=== PATIENT | female | born 1995 | race Caucasian/White ===

== ENCOUNTER 2023-03-05 08:11 | Inpatient (IN) | payer OTHER, MEDICAID, SELFPAY ==
[2023-03-05] VITALS (17 sets, daily range): BP systolic 89–116; BP diastolic 54–83; PULSE 75–107; RESP 14–18; TEMP 35.8–36.9; O2SAT 95–100; BMI 35.5
[2023-03-05 08:58] LABS: Absolute Lymphocyte Count 2.03 X10^3/uL (0.83-4.51); Absolute Neutrophil Count 5.5 X10^3/uL (2.0-7.7); Basophil# 0.03 X10^3/uL; Basophil% 0.4 % (0-1); Eosinophils% 1.2 % (0-5); Hematocrit 31.5 % (37-47); Hemoglobin 9.8 g/dL (12.0-15.0); Lymphocyte # 2.03 X10^3/ul (0.83-4.51); Lymphocyte % 24.4 % (19-41); Mean Corp Hgb Conc 31.1 g/dL (32-36); Mean Corpuscular Hgb 27.8 pg (27.0-32.0); Mean Corpuscular Volume 89.2 fL (81-99); Mean Platelet Vol. 10.7 fl (6.2-12.0); Monocyte# 0.53 X10^3/uL; Monocyte% 6.4 % (0-10); NRBC Flagged by Analyzer 0 % (0-5); Platelet Count 244 K/mm3 (150-450); RBC Distribution Width CV 14.3 % (11.6-14.6); RBC Distribution Width SD 45.8 fl (35.1-43.9); Red Blood Count 3.53 M/mm3 (4.2-5.4); White Blood Count 8.3 K/mm3 (4.4-11.0)
[2023-03-05] MEDS: Lactated Ringers 1,000 ML 999 ML IV (09:36)
[2023-03-05] MEDS: Acetaminophen 500 MG Tablet 1000 MG PO ×3 (09:46→22:43)
[2023-03-05] MEDS: Lactated Ringers 1,000 ML 150 ML IV (09:46)
[2023-03-05 09:54] LABS: Syphilis Antibodies Non-reactive
[2023-03-05] MEDS: Sodium Citrate/Citric Acid 30 ML UDC PO (10:59)
[2023-03-05] MEDS: Cefazolin 2 GM in 0.9% Normal Saline 100 ML IV (11:05)
--- NOTE | 2023-03-05 11:55 | PLAC_PTH ---
PATIENT: PARKER BERGMAN LOC: [facility] U#:[id number] AGE/SX: 27/F ROOM: WP004 RE03/05/[address]: Dr. Candelaria Stock MD : 1995 BED: 1 DIS: 03/09/2023 SPEC #: [id number] RECD: 03/05/23 12:55 STATUS: ALEXANDER REAustin #: [id number] MARZENA: 03/05/23 11:[address]: Candelaria Stock DEPT: SURGICAL PATHOLOGY RECD BY: Mitra Combs ENTERED: 03/06/23 09:31 SP TYPE: PLACENTA OTHR DR: No Primary Care Phys Tissues: A - Placenta, NOS B - Fallopian tube Procedures: Surgery Specimen Level II Surgery Specimen Level V HEADER OPERATION: Primary section, tubal ligation PRE-OP DIAGNOSIS: IUGR / twins TISSUE SUBMITTED: A ? Placenta, B ? Fallopian tubes, suture in right tube MICROSCOPIC DIAGNOSIS A. Dichorionic diamniotic twin placenta (713 gm): Placenta A: Umbilical cord ? trivascular with no inflammation. Placental membranes - No pathologic change. Placental disc ? Jemima-Zackary change, increased intraparenchymal fibrin plaques and intervillous congestion. Placenta B: Umbilical cord ? trivascular with no evidence of inflammation. Placental membranes - No pathologic change. Placental disc ? Multi-infarcts, Jemima-Zackary change and intervillous congestion. B. Right fallopian tube, salpingectomy: No pathologic change. Left fallopian tube, salpingectomy: No pathologic change. AM:anastasia 03/09/2023 COMMENT Case has been reviewed in consultation with Dr. Nathan who concurs with the above diagnosis. IDC:SJ MICROSCOPIC DESCRIPTION Slides are reviewed. GROSS DESCRIPTION A - SPECIMEN: TWIN PLACENTA / CLINICAL INFORMATION: A. Weight: A ? 1.99 kg; B ? 2.165 kg B. Gestational Age: 37 weeks C. Sex: A ? Male, B - Female The specimen consists of twin placenta consisting of a single placental disc, two umbilical cord and two sets of membranes and dividing membranous septum inserted close to the umbilical cord without clamp. One umbilical cord shows a clamp which is assigned placenta A. PLACENTAL WEIGHT (POST FIXATION): 713 gm PLACENTAL DIMENSIONS: 28.0 x 17.0 x 4.0 cm. The body of the placenta towards placenta A measures up to 22.0 x 12.0 x 4.0 cm and towards placenta B measures 18.0 x 11.0 x 4.5 cm PLACENTAL SHAPE: Usual ovoid PLACENTA A: MEMBRANES - Present A. Insertion: Marginal B. Site of rupture from edge: Appears to be ruptured at the margin of the placenta. C. Color of membrane: Bauer-glaser D. Abnormalities: None UMBILICAL CORD - Present A. Color: Bauer-glaser B. Insertion: Central C. Length: 37.0 cm D. Diameter: 1.0 cm E. Number of vessels: Three F. Abnormalities: A true knot is present. It appears to be sightly tight. After untying the knot, it measures 41.0 cm in length and measures 1.0 cm diameter. Slightly increased spiraling is noted. PLACENTA B: MEMBRANES - Present A. Insertion: Marginal B. Site of rupture from edge: at edge of placental disc C. Color of membrane: Bauer-glaser D. Abnormalities: None UMBILICAL CORD - Present A. Color: Bauer-glaser B. Insertion: Marginal C. Length: 44.0 cm D. Diameter: 1.0 cm E. Number of vessels: Three F. Abnormalities: Increased spiraling is noted. PLACENTAL DISC - Present A. Color of surface: Bauer-glaser B. surface abnormalities: None C. Maternal cotyledons: Intact with minimal tears D. Attached retro placental clot: No clot E. Cut surface: Dark red and spongy F. Lesions: Sections of the placental B site reveal two peripheral lesions measuring 1.0 and 1.5 cm in greatest dimension. A bauer, indurated area is also noted on the maternal surface measuring 0.5 cm in greatest dimension. G. Separate clot: Absent SECTIONS SUBMITTED: 12 cassettes 1 - Dividing membranous septum, 2-6 - placenta A (2 - membrane roll, 3 - umbilical cord, maternal end inked black, 4-6 - body of the placenta), 7-12 - placenta B (7 - membrane roll, 8 - umbilical cord, maternal end and lesion on placental surface, 9 ? umbilical cord end and peripheral lesion, 10-12 - body of the placenta including maternal surface, peripheral lesion). B - Received in fixative is one container labeled with the patient's name and designated bilateral fallopian tubes, right stitch. The specimen consists of bilateral fallopian tubes including fimbrial ends. The right fallopian tube measures 7.0 cm in length and up to 1.0 cm in diameter and left fallopian tube measures 5.5 cm in length and 0.6 cm in diameter. Sections reveal unremarkable cut surfaces. Uniformer sections are submitted in two cassettes with each cassette containing one fallopian tube. / SJ:anastasia 03/06/2023 TC:5 CPT: 59475 x2, 54645 x2
--- NOTE | 2023-03-05 11:58 | EX.PCM.OBRPT ---
Assessment & Plan (1) Dichorionic diamniotic twin gestation: (2) Transverse lie: (3) 37 weeks gestation of : (4) IUGR (intrauterine growth restriction) affecting care of mother: Maternal Data Information Final [facility]: 03/26/23 Gestational age: 37 0/7 Details Operative Information Date of Procedure: 03/05/23 Pre-Operative Diagnosis: IUGR, di/di twins, transverse lie fetus a and b, sterilization request Post-Operative Diagnosis: same Classification: Scheduled Procedure Type: bilateral salpingectomy environmental studies professor #1: Waldo David environmental studies professor #2: Chato Guerrero MS3 Type of Anesthesia: Spinal Anesthesiologist: Ivonne Stewart Antibiotic Given: Ancef 2 grams IV x1 Drain: Gold to straight drain Estimated Blood Loss: 900 Fluids Replaced: 1100 Procedure Start Time: 11:25 Procedure Stop Time: 12:00 Time of Delivery: 11:27 Findings Description of Procedure: The patient was taken to the operating room. She was prepped and draped in the dorsal supine position with a leftward tilt. A Pfannenstiel skin incision was made approximately 2 cm above the symphysis pubis and carried through to underlying layer fascia with the scalpel. The fascia was incised incised in the midline and extended laterally with the Berry scissors. The rectus muscles were in the midline and the peritoneum was entered bluntly. The peritoneal incision was stretched and the bladder blade was placed. The uterine incision was made in a low transverse fashion with the scalpel and extended superiorly and inferiorly with blunt dissection. The amniotic membranes were ruptured after the breech of fetus a was identified. The breech was brought out through the incision. The legs were swept out individually and then the arms. The head delivered spontaneously without any traction. After approximately 30 seconds the cord was clamped and cut and the was handed off to the waiting nursing staff. Baby B was then palpated and found to be transverse. The vertex was able to be brought down to the incision and the amniotic ruptured membranes were ruptured for return of clear fluid.. The infant's head was brought to the incision in the flexed position and delivered without difficulty. The remainder of the infant was delivered with gentle traction and fundal pressure in the standard fashion. The mouth and nares were bulb suctioned. The cord was clamped and cut as the was stimulated. Cord clamping was delayed about 20 seconds and time for fetus B was 118 am. The was handed off to the waiting nursing staff. The placenta was delivered with fundal massage and gentle traction in the standard fashion. The uterus was exteriorized and cleared of all clots and debris. The cervix was dilated with a ring forcep. The uterine incision was closed with #1 Vicryl in a running locked fashion. A second layer of the same suture was used in an imbricating fashion to obtain hemostasis. The incision was examined and was found to be hemostatic. The uterus was placed back into the peritoneal cavity and hemostasis was again confirmed. The antimesenteric portion of the left fallopian tube was identified, followed out to the fimbriated end. The LigaSure device was used to clamp, seal and transect the antimesenteric portion of the tube from the remainder of the broad ligament. The tube was then amputated with the LigaSure device from the cornual insertion. Hemostasis was noted. The same procedure was performed on the contralateral side and again hemostasis was noted. The rectus muscles were examined and any bleeding was Bovie cauterized. The parietal peritoneum and rectus muscles were closed en bloc with an 0 Vicryl running suture. The rectus fascia was examined and any bleeding was Bovie cauterized and the rectus fascia was closed with 1 Vicryl suture in a running standard fashion. The subcutaneous tissue was examining and any bleeding was Bovie cauterized. The subcutaneous tissue was reapproximated with 3-0 Vicryl suture. The skin was closed in a subcuticular fashion by the DESILVERIZER with me present in the labor and delivery suite. I performed the remainder of the procedure with assistance. All sponge, lap, and needle counts were correct. The patient was taken to her room for recovery in a stable condition. Presentation: Positive for Complete Breech (See above. Fetus a was transverse but delivered complete breech. Baby B was transverse and delivered vertex) Amniotic Membrane Rupture Type: Artificial Amniotic Fluid Description: Clear Placental Delivery Description: Expressed Placenta Disposition: Sent to Pathology Specimen(s) Sent to Pathology: Placenta and bilateral fallopian tubes Cord Vessel Description: 3 Vessels Cord Entanglement: None A Gender: Male (4 pounds 10 ounces, Kan) (1 minute): 8 (5 minute): 9 Delayed Cord Clamping: Yes Complications Complications: none Baby B Information Amniotic Membrane Rupture Type: Artificial Operative Information Mode of Delivery: Cord Vessel Description: 3 Vessels Cord Entanglement: None B gender: Female (5 pounds 3 ounces, Natali) (1 minute): 9 (5 minute): 10
[2023-03-05] MEDS: Oxytocin 15 Units/NS 250ml 15 UNITS/250 ML IV.SOLN 83 UNITS IV (12:15)
[2023-03-05] MEDS: Ketorolac 30 MG/ML Syringe IV ×2 (12:53→19:08)
[2023-03-05 13:02] LABS: Pathology Specimen OB SEE PATHOLOGY REPORT
[2023-03-05 13:05] LABS: Pathology Specimen OB SEE PATHOLOGY REPORT
[2023-03-05] MEDS: Lactated Ringers 1,000 ML 100 ML IV (15:36)
--- NOTE | 2023-03-05 17:48 | PCM.HP.OB ---
HPI - General General Date of Admission: 03/05/23 Date of Service: 03/05/23 Chief Complaint: twins HPI Narrative PARKER BERGMAN, is a 27 YOF with a EDC of 03/26/2023 with dichorionic diamniotic twin gestation. Both twins are noted to be transverse presentation. Concern for intrauterine growth restriction. Maternal- medicine recommends delivery. Because of transverse presentation patient desires to proceed with primary section. Maternal Data Information Final [facility]: 03/26/23 Gestational age: 37 0/7 [facility] Medical History (Updated 03/05/23 @ 11:[address] Candelaria Stock MD) Headache History of chlamydia Home Medications famotidine 20 mg tablet (Pepcid) 20 mg PO BID heartburn 03/05/23 [History Last Taken 03/04/23 22:00] vitamins-iron fumarate 65 mg iron-folic acid 1 mg tablet 1 tab PO DAILY 03/05/23 [History Last Taken 02/26/23 10:00] Allergy/AdvReac Type Severity Reaction Status Date / Time No Known Allergies Allergy Verified 03/05/23 08:49 Social History Smoking Status: Never smoker History Elective abortions Hx Para 1 Spontaneous abortions Hx # Term Pregnancies Ectopic pregnancies Hx # Pregnancies Multiple births # of living children ROS Constitutional Constitutional: Denies fatigue, fever(s) or malaise Eyes Eyes: Denies change in vision ENT HEENT: Denies dizziness or headache(s) Cardiovascular Cardiovascular: Denies chest pain, dyspnea or lightheadedness Respiratory/Chest Respiratory/Chest: Denies cough or dyspnea Gastrointestinal Gastrointestinal: Denies change in bowel habits Genitourinary Genitourinary: Denies burning urination or genital lesions Integumentary Integumentary: Denies rash Neurologic Neurologic: Denies confusion, dizziness, headache(s), numbness or weakness Vital Signs Vital Signs Vital Signs: 03/05/23 09:30 03/05/23 12:15 03/05/23 12:30 Temperature 98.0 F 98.5 F 97.3 F L Temperature Source Temporal Temporal Axillary Pulse Rate 95 101 H 100 Respiratory Rate 16 15 14 Respiratory Pattern Normal Blood Pressure 116/83 H 111/82 H 103/69 Blood Pressure [BP] Blood Pressure Mean 94 91 80 Blood Pressure Mean [BP] Blood Pressure Source Monitor Monitor Monitor Blood Pressure Source [BP] Blood Pressure Position Semi-Fowlers Semi-Fowlers Semi-Fowlers Blood Pressure Position [BP] Blood Pressure Location Left Arm Left Arm Left Arm Blood Pressure Location [BP] Baseline BP 116/83 116/83 Pulse Ox 100 98 98 Oxygen Delivery Method Room Air Room Air Room Air 03/05/23 12:45 03/05/23 13:00 03/05/23 13:15 Temperature 97.5 F L 97.5 F L Temperature Source Temporal Temporal Pulse Rate 107 H 104 H 87 Respiratory Rate 15 16 16 Respiratory Pattern Blood Pressure 102/75 102/66 107/74 Blood Pressure [BP] Blood Pressure Mean 84 78 85 Blood Pressure Mean [BP] Blood Pressure Source Monitor Monitor Monitor Blood Pressure Source [BP] Blood Pressure Position Semi-Fowlers Semi-Fowlers Semi-Fowlers Blood Pressure Position [BP] Blood Pressure Location Right Arm Left Arm Right Arm Blood Pressure Location [BP] Baseline BP 116/83 116/83 116/83 Pulse Ox 97 98 96 Oxygen Delivery Method Room Air Room Air Room Air 03/05/23 13:30 03/05/23 13:45 03/05/23 14:00 Temperature 97.0 F L Temperature Source Temporal Pulse Rate 83 93 92 Respiratory Rate 15 16 15 Respiratory Pattern Blood Pressure 106/69 111/67 115/68 Blood Pressure [BP] Blood Pressure Mean 81 81 83 Blood Pressure Mean [BP] Blood Pressure Source Monitor Monitor Monitor Blood Pressure Source [BP] Blood Pressure Position Semi-Fowlers Semi-Fowlers Semi-Fowlers Blood Pressure Position [BP] Blood Pressure Location Left Arm Left Arm Left Arm Blood Pressure Location [BP] Baseline BP 116/83 116/83 116/83 Pulse Ox 97 98 97 Oxygen Delivery Method Room Air Room Air Room Air 03/05/23 15:04 03/05/23 14:15 03/05/23 15:35 Temperature 97.3 F L Temperature Source Temporal Pulse Rate 75 81 79 Respiratory Rate 15 15 16 Respiratory Pattern Blood Pressure 97/54 L Blood Pressure [BP] 89/65 L Blood Pressure Mean 68 Blood Pressure Mean [BP] 73 Blood Pressure Source Monitor Blood Pressure Source [BP] Monitor Blood Pressure Position Semi-Fowlers Blood Pressure Position [BP] Semi-Fowlers Blood Pressure Location Left Arm Blood Pressure Location [BP] Left Arm Baseline BP 116/83 Pulse Ox 98 96 Oxygen Delivery Method Room Air Room Air Room Air 03/05/23 16:43 Temperature 96.4 F L Temperature Source Temporal Pulse Rate 88 Respiratory Rate 16 Respiratory Pattern Blood Pressure Blood Pressure [BP] 106/70 Blood Pressure Mean Blood Pressure Mean [BP] 82 Blood Pressure Source Blood Pressure Source [BP] Monitor Blood Pressure Position Blood Pressure Position [BP] Semi-Fowlers Blood Pressure Location Blood Pressure Location [BP] Left Arm Baseline BP Pulse Ox 98 Oxygen Delivery Method Room Air Weight Weight: 103 kg Body Mass Index (BMI) 35.5 Physical Exam Const alert and no apparent distress General Appearance: cooperative HEENT normocephalic Resp normal respiratory effort Cardio regular rate GI soft to palpation GI Narrative: gravid, nontender, appropriate for gestational age Extremity no calf tenderness General Extremity: edema Skin no wounds Rashes: No rashes noted Psych activity/motor behavior normal Labs Labs Labs: Blood Type O POSITIVE Antibody Screen NEGATIVE Hct 31.5 % (37-47) L Hgb 9.8 g/dL (12.0-15.0) L Syphilis Total Ab Non-reactive Assessment & Plan (1) IUGR (intrauterine growth restriction) affecting care of mother: PLAN: Risk benefits alternatives to primary section were discussed with patient, her questions were answered to her satisfaction she desires to proceed. She understands the tubal sterilization is permanent, irreversible risk of regret and failure. Patient's questions were answered to her satisfaction she desires to proceed. (2) 37 weeks gestation of : (3) Transverse lie: (4) Dichorionic diamniotic twin gestation:
[2023-03-05] MEDS: LACTATED RINGERS 500 ML 999 ML IV (19:08)
--- NOTE | 2023-03-05 23:47 | NURSING ---
call to physical to update on pt status. urine is dark yellow, not meeting parameters of 30 cc/hour. 100 cc was emptied from catheter bag fo four hour period. this RN got telephone order to run a 500 cc bolus and catheter to remain in place until output is 30 cc/hour or more.
[2023-03-06 00:05] VITALS: BP 100/58; PULSE 73; RESP 16; TEMP 36.6; O2SAT 98
[2023-03-06] MEDS: LACTATED RINGERS 500 ML 999 ML IV ×2 (00:33→03:33)
[2023-03-06] MEDS: 0.9% Saline Lock 10 ML Syringe IV ×4 (00:54→14:06)
[2023-03-06] MEDS: Enoxaparin 40 MG/0.4 ML Syringe SC (01:04)
[2023-03-06 01:17] LABS: Hematocrit 22.6 % (37-47); Mean Corpuscular Hgb 27.6 pg (27.0-32.0); Mean Platelet Vol. 10.3 fl (6.2-12.0); Platelet Count 184 K/mm3 (150-450); RBC Distribution Width CV 14.4 % (11.6-14.6); RBC Distribution Width SD 46.5 fl (35.1-43.9); Red Blood Count 2.54 M/mm3 (4.2-5.4); White Blood Count 15.2 K/mm3 (4.4-11.0)
[2023-03-06] MEDS: Lactated Ringers 1,000 ML 100 ML IV (03:33)
[2023-03-06 03:35] VITALS: BP 92/51; PULSE 73; RESP 96; TEMP 36.5
[2023-03-06] MEDS: Acetaminophen 500 MG Tablet 1000 MG PO ×4 (04:58→23:11)
[2023-03-06] MEDS: Ketorolac 30 MG/ML Syringe IV ×2 (07:48→14:06)
[2023-03-06 08:45] VITALS: BP 99/60; PULSE 68; RESP 16; TEMP 36.4; O2SAT 96
--- NOTE | 2023-03-06 08:55 | PN.OBGYN_ITS ---
Subjective Subjective Denies complaints Objective Data Objective Data Vital Signs: Vital Signs Temp Pulse Resp BP Pulse Ox O2 Del Method 97.7 F L 73 96 H 92/51 L 98 Room Air 03/06/23 03:35 03/06/23 03:35 03/06/23 03:35 03/06/23 03:35 03/06/23 00:05 03/06/23 03:35 Oxygen Delivery Method Room Air Weight: 227 lb 1.218 oz Body Mass Index (BMI) 35.5 Intake & Output: Intake and Output for Last 24 Hours 03/04/23 03/05/23 03/06/23 23:59 23:59 23:59 Intake Total 2255 / 2255 1999 Output Total 1500 / 1500 Balance 755 / 755 1999 Lab / Micro Data Result Diagrams: 03/06/23 01:08 Labs: Laboratory Results - last 24 hr 03/05/23 08:40: WBC 8.3, RBC 3.53 L, Hgb 9.8 L, Hct 31.5 L, MCV 89.2, MCH 27.8, MCHC 31.1 L, RDW Std Deviation 45.8 H, RDW Coeff of Carlita 14.3, Plt Count 244, MPV 10.7, Immature Gran % (Auto) 1.600 H, Neut % (Auto) 66.0, Lymph % (Auto) 24.4, [place] % (Auto) 6.4, Eos % (Auto) 1.2, Baso % (Auto) 0.4, Absolute Neuts (auto) 5.5, Absolute Lymphs (auto) 2.03, Nucleated RBC % 0 03/05/23 08:40: Blood Type O POSITIVE, Antibody Screen NEGATIVE 03/05/23 08:40: Syphilis Total Ab Non-reactive 03/06/23 01:08: WBC 15.2 H, RBC 2.54 L, Hgb 7.0 L, Hct 22.6 L, MCV 89.0, MCH 27.6, MCHC 31.0 L, RDW Std Deviation 46.5 H, RDW Coeff of Carlita 14.4, Plt Count 184, MPV 10.3 Physical Exam Const alert, oriented x3 and no apparent distress HEENT normocephalic GI soft to palpation, non-tender and non-distended GI Narrative: fundus firm, mid & below umbilicus Incision - bandage c/d/i Extremity normal to inspection and no calf tenderness Assessment & Plan (1) Delivery by section: COMMENT: POD#1 (2) Anemia affecting : PLAN: Plan Heme - HDS, hb 7 this am. Will give IV iron. Repeat CBC tomorrow. - adequate UOP ID - AF, no signs infection Routine care
[2023-03-06] MEDS: Senna/Docusate Sodium 1 Tablet PO (11:07)
[2023-03-06 12:15] VITALS: BP 105/71; PULSE 77; RESP 16; TEMP 36.8; O2SAT 96
[2023-03-06 16:43] VITALS: BP 107/52; PULSE 79; RESP 16; TEMP 36.3
[2023-03-06] MEDS: Ibuprofen 600 MG Tablet PO (19:54)
[2023-03-06 20:16] VITALS: BP 119/62; PULSE 81; RESP 16; TEMP 36.4
[2023-03-07 02:16] VITALS: BP 115/64; PULSE 85; RESP 16; TEMP 36.9
[2023-03-07] MEDS: Ibuprofen 600 MG Tablet PO ×4 (02:16→21:01)
[2023-03-07] MEDS: Acetaminophen 500 MG Tablet 1000 MG PO ×3 (05:02→18:05)
[2023-03-07 05:19] LABS: Absolute Neutrophil Count 7.3 X10^3/uL (2.0-7.7); Basophil# 0.02 X10^3/uL; Basophil% 0.2 % (0-1); Eosinophil# 0.11 X10^3/uL; Hematocrit 21.5 % (37-47); Hemoglobin 6.7 g/dL (12.0-15.0); Lymphocyte % 20.8 % (19-41); Mean Corp Hgb Conc 31.2 g/dL (32-36); Mean Corpuscular Hgb 27.8 pg (27.0-32.0); Mean Corpuscular Volume 89.2 fL (81-99); Mean Platelet Vol. 9.8 fl (6.2-12.0); Monocyte# 0.71 X10^3/uL; Monocyte% 6.7 % (0-10); NRBC Flagged by Analyzer 0.3 % (0-5); Neutrophil % 68.8 % (47-70); Platelet Count 198 K/mm3 (150-450); RBC Distribution Width CV 14.8 % (11.6-14.6); RBC Distribution Width SD 47.1 fl (35.1-43.9); Red Blood Count 2.41 M/mm3 (4.2-5.4); White Blood Count 10.6 K/mm3 (4.4-11.0)
[2023-03-07 08:08] VITALS: BP 113/60; PULSE 80; RESP 16; TEMP 37.2; O2SAT 96
[2023-03-07] MEDS: Enoxaparin 40 MG/0.4 ML Syringe SC (10:16)
[2023-03-07] MEDS: Senna/Docusate Sodium 1 Tablet PO (10:16)
[2023-03-07] MEDS: 0.9% Saline Lock 10 ML Syringe IV (11:56)
[2023-03-07 14:17] VITALS: BP 112/64; PULSE 88; RESP 16; TEMP 36.9; O2SAT 97
[2023-03-07] MEDS: oxyCODONE 5 MG Tablet PO ×2 (14:24→21:05)
--- NOTE | 2023-03-07 16:50 | PN.OBGYN_ITS ---
Subjective Subjective Feels OK. She feels a little tired when getting up but denies feeling dizzy or SOB. Objective Data Objective Data Vital Signs: Vital Signs Temp Pulse Resp BP Pulse Ox O2 Del Method 98.4 F 88 16 112/64 97 Room Air 03/07/23 14:17 03/07/23 14:17 03/07/23 14:17 03/07/23 14:17 03/07/23 14:17 03/07/23 14:17 Oxygen Delivery Method Room Air Weight: 227 lb 1.218 oz Body Mass Index (BMI) 35.5 Intake & Output: Intake and Output for Last 24 Hours 03/05/23 03/06/23 03/07/23 23:59 23:59 23:59 Intake Total 2255 / 2255 2740 / 2740 Output Total 1500 / 1500 1999 / 1999 Balance 755 / 755 740 / 740 Lab / Micro Data Result Diagrams: 03/07/23 05:00 Labs: Laboratory Results - last 24 hr 03/07/23 05:00: WBC 10.6, RBC 2.41 L, Hgb 6.7 L, Hct 21.5 L, MCV 89.2, MCH 27.8, MCHC 31.2 L, RDW Std Deviation 47.1 H, RDW Coeff of Carlita 14.8 H, Plt Count 198, MPV 9.8, Immature Gran % (Auto) 2.500 H, Neut % (Auto) 68.8, Lymph % (Auto) 20.8, [place] % (Auto) 6.7, Eos % (Auto) 1.0, Baso % (Auto) 0.2, Absolute Neuts (auto) 7.3, Absolute Lymphs (auto) 2.20, Nucleated RBC % 0.3 Physical Exam Const alert, oriented x3 and no apparent distress HEENT normocephalic GI soft to palpation, non-tender and non-distended GI Narrative: fundus firm, mid & below umbilicus Incision - bandage c/d/i Extremity normal to inspection and no calf tenderness Assessment & Plan (1) Anemia affecting : COMMENT: POD#2 (2) Delivery by section: PLAN: Plan Anemia - Hb relatively stable 7 to 6.7today. S/p 1 dose IV iron. Will given another dose tomorrow. Discussed option of blood transfusion if becomes symptomatic. Continue routine PP care
[2023-03-07 20:50] VITALS: BP 127/66; PULSE 88; RESP 16; TEMP 36.1
[2023-03-08] VITALS (12 sets, daily range): BP systolic 111–149; BP diastolic 72–91; PULSE 68–104; RESP 16–18; TEMP 36.5–37.3; O2SAT 96–98
[2023-03-08] MEDS: Acetaminophen 500 MG Tablet 1000 MG PO ×4 (00:07→18:05)
[2023-03-08] MEDS: Ibuprofen 600 MG Tablet PO ×4 (02:39→21:49)
[2023-03-08] MEDS: oxyCODONE 5 MG Tablet PO (04:11)
[2023-03-08 06:37] LABS: Absolute Lymphocyte Count 2.25 X10^3/uL (0.83-4.51); Absolute Neutrophil Count 6.2 X10^3/uL (2.0-7.7); Basophil# 0.06 X10^3/uL; Basophil% 0.6 % (0-1); Eosinophil# 0.19 X10^3/uL; Hematocrit 21.8 % (37-47); Hemoglobin 6.5 g/dL (12.0-15.0); Lymphocyte # 2.25 X10^3/ul (0.83-4.51); Lymphocyte % 23.5 % (19-41); Mean Corp Hgb Conc 29.8 g/dL (32-36); Mean Corpuscular Hgb 27.7 pg (27.0-32.0); Mean Corpuscular Volume 92.8 fL (81-99); Mean Platelet Vol. 10.3 fl (6.2-12.0); Monocyte# 0.61 X10^3/uL; Monocyte% 6.4 % (0-10); NRBC Flagged by Analyzer 0.3 % (0-5); Neutrophil # 6.16 X10^3/uL (2.7-7.7); Neutrophil % 64.3 % (47-70); Platelet Count 238 K/mm3 (150-450); RBC Distribution Width CV 15.1 % (11.6-14.6); RBC Distribution Width SD 49.6 fl (35.1-43.9); Red Blood Count 2.35 M/mm3 (4.2-5.4); White Blood Count 9.6 K/mm3 (4.4-11.0)
[2023-03-08] MEDS: 0.9% Saline Lock 10 ML Syringe IV ×2 (08:48→17:12)
--- NOTE | 2023-03-08 10:04 | PCM.PN.OB ---
Subjective Subjective Pain controlled. Feels OK but a little tired. Objective Data Objective Data Vital Signs: Vital Signs Temp Pulse Resp BP Pulse Ox O2 Del Method 98.5 F 68 16 126/79 H 97 Room Air 03/08/23 08:45 03/08/23 08:45 03/08/23 08:45 03/08/23 08:45 03/08/23 08:45 03/08/23 08:45 Oxygen Delivery Method Room Air Weight: 227 lb 1.218 oz Body Mass Index (BMI) 35.5 Intake & Output: Intake and Output for Last 24 Hours 03/06/23 03/07/23 03/08/23 23:59 23:59 23:59 Intake Total 2740 / 2740 Output Total 1999 / 1999 Balance 740 / 740 Lab / Micro Data Result Diagrams: 03/08/23 06:15 Labs: Laboratory Results - last 24 hr 03/08/23 06:15: WBC 9.6, RBC 2.35 L, Hgb 6.5 L, Hct 21.8 L, MCV 92.8, MCH 27.7, MCHC 29.8 L, RDW Std Deviation 49.6 H, RDW Coeff of Carlita 15.1 H, Plt Count 238, MPV 10.3, Immature Gran % (Auto) 3.200 H, Neut % (Auto) 64.3, Lymph % (Auto) 23.5, [place] % (Auto) 6.4, Eos % (Auto) 2.0, Baso % (Auto) 0.6, Absolute Neuts (auto) 6.2, Absolute Lymphs (auto) 2.25, Nucleated RBC % 0.3 Physical Exam Const alert, oriented x3 and no apparent distress HEENT normocephalic GI soft to palpation, non-tender and non-distended GI Narrative: fundus firm, mid & below umbilicus Incision - bandage c/d/i Extremity normal to inspection and no calf tenderness Assessment & Plan (1) Anemia affecting : COMMENT: POD#3 (2) Delivery by section: PLAN: Plan Hb 6.5 today. Discussed R/B/A of transfusion 1 unit PRBC's and patient agrees to proceed. repeat CBC ordered. Plan for oral iron at home. Routine care & possible discharge later today or tomorrow.
--- NOTE | 2023-03-08 10:07 | PCM.DC.SUM ---
Documented by User: Dr. Laney Vu MD 03/10/23 13:15 Providers Date of Admission: 03/05/23 Primary Care Physician: No Primary Care Phys Reason For Visit: PRIMARY C SECTION Diagnosis Discharge Diagnosis (1) Anemia affecting : Status: Acute Code(s): O99.019 - Anemia complicating , unspecified trimester (2) Delivery by section: Status: Acute Plan Hb 6.5 today. Discussed R/B/A of transfusion 1 unit PRBC's and patient agrees to proceed. repeat CBC ordered. Plan for oral iron at home. Routine care & possible discharge later today or tomorrow. Medications at Discharge Home Medications famotidine 20 mg tablet (Pepcid) 20 mg PO BID heartburn 03/05/23 vitamins-iron fumarate 65 mg iron-folic acid 1 mg tablet 1 tab PO DAILY 03/05/23 Hospital Course Operations section Summary of Care Provided Minutes Spent on Discharge: 10 Hospital Course: Patient admitted for repeat . She had anemia PP for which she received IV iron & 1 unit PRBC's. Upon discharge she was doing well. Physical Exam Const alert, oriented x3 and no apparent distress HEENT normocephalic GI soft to palpation, non-tender and non-distended GI Narrative: fundus firm, mid & below umbilicus Incision - bandage c/d/i Extremity normal to inspection and no calf tenderness Weight / BMI Weight Weight: 227 lb 1.218 oz Body Mass Index (BMI) 35.5 ABG / Lab / Microbiology Data Result Diagrams: 03/09/23 05:00 Laboratory: Laboratory Results - last 24 hr 03/08/23 06:15: WBC 9.6, RBC 2.35 L, Hgb 6.5 L, Hct 21.8 L, MCV 92.8, MCH 27.7, MCHC 29.8 L, RDW Std Deviation 49.6 H, RDW Coeff of Carlita 15.1 H, Plt Count 238, MPV 10.3, Immature Gran % (Auto) 3.200 H, Neut % (Auto) 64.3, Lymph % (Auto) 23.5, Amelia % (Auto) 6.4, Eos % (Auto) 2.0, Baso % (Auto) 0.6, Absolute Neuts (auto) 6.2, Absolute Lymphs (auto) 2.25, Nucleated RBC % 0.3 Discharge Plan Admission Admit Date/Time: 03/05/23 08:11 Attending Provider: Candelaria Stock Primary Care Provider: Laurent Physician,No Primary Instructions Patient Instructions: After a Discharge Orders/Prescriptions Prescriptions: No Action famotidine [Pepcid] 20 mg Tablet 20 mg PO BID Prena-Tab 65 mg iron- 1 mg Tablet 1 tab PO DAILY Referrals / Follow Up: Care Physician,No Primary [Primary Care Provider] - Disposition Disposition (needs filled in before D/C Order can be placed): Home, Self Care Documented by User: Karen Sawant CNM 03/09/23 08:24 Providers Date of Admission: 03/05/23 Reason For Visit: PRIMARY C SECTION Diagnosis Discharge Diagnosis (1) Anemia affecting : Status: Acute Code(s): O99.019 - Anemia complicating , unspecified trimester (2) Delivery by section: Status: Acute Medications at Discharge Home Medications famotidine 20 mg tablet (Pepcid) 20 mg PO BID heartburn 03/05/23 vitamins-iron fumarate 65 mg iron-folic acid 1 mg tablet 1 tab PO DAILY 03/05/23 ABG / Lab / Microbiology Data Result Diagrams: 03/09/23 05:00 Meaningful Use Info Meaningful Use Diagnoses (Choose all that apply): None applicable Discharge Plan Admission Admit Date/Time: 03/05/23 08:11 Attending Provider: Candelaria Stock Primary Care Provider: Laurent Physician,No Primary Instructions Patient Instructions: After a Discharge Orders/Prescriptions Prescriptions: No Action famotidine [Pepcid] 20 mg Tablet 20 mg PO BID Prena-Tab 65 mg iron- 1 mg Tablet 1 tab PO DAILY Referrals / Follow Up: Care Physician,No Primary [Primary Care Provider] - Disposition Disposition (needs filled in before D/C Order can be placed): Home, Self Care
[2023-03-08] MEDS: Enoxaparin 40 MG/0.4 ML Syringe SC (10:32)
[2023-03-08] MEDS: Senna/Docusate Sodium 1 Tablet PO (10:32)
--- NOTE | 2023-03-08 16:26 | NURSING ---
Pt reports intermittent tingling to jawline of face. BP elevated at 1 hour check-rechecked 5 minutes later and BP WNL. Phone call placed to Polo Vu to update on pt status. No hives, difficulty breathing or pain noted. MD desires to continue transfusion.
--- NOTE | 2023-03-08 16:40 | NURSING ---
Phone call received from Polo Vu. Updated on pts status. VSS. No rash, N/V or complaints of any new symptoms. Would like 25 mg IV Benadryl given. Will continue q1 hours vitals for 3 hours.
[2023-03-08] MEDS: DiphenhydrAMINE 50 MG/ML Syringe 25 MG IV (17:11)
[2023-03-09] MEDS: Acetaminophen 500 MG Tablet 1000 MG PO ×2 (00:26→06:19)
[2023-03-09] MEDS: Ibuprofen 600 MG Tablet PO ×2 (02:45→08:58)
[2023-03-09 02:47] VITALS: BP 119/76; PULSE 78; RESP 20
[2023-03-09 05:15] LABS: Hematocrit 24.8 % (37-47); Hemoglobin 7.7 g/dL (12.0-15.0); Mean Corpuscular Volume 90.2 fL (81-99); Mean Platelet Vol. 9.5 fl (6.2-12.0); Platelet Count 263 K/mm3 (150-450); RBC Distribution Width CV 15.1 % (11.6-14.6); RBC Distribution Width SD 48.2 fl (35.1-43.9); Red Blood Count 2.75 M/mm3 (4.2-5.4); White Blood Count 9.2 K/mm3 (4.4-11.0)
[2023-03-09 07:30] VITALS: BP 115/65; PULSE 63; RESP 15; TEMP 36.9; O2SAT 99
--- NOTE | 2023-03-09 08:24 | OB.TRI.PN_ITS ---
Progress Notes Progress Note: Doing well per patient and nursing staff. Ambulating and taking PO without difficulty. Voiding and passing flatus. Pain controlled. Denies headache, visual changes, chest pain, shortness of breath, leg pain or increased bleeding. Lochia normal. Laboratory Studies: Laboratory Tests 03/09/23 03/08/23 03/08/23 Range/Units 05:00 11:50 06:15 WBC 9.2 9.6 (4.4-11.0) K/mm3 RBC 2.75 L 2.35 L (4.2-5.4) M/mm3 Hgb 7.7 L 6.5 L (12.0-15.0) g/dL Hct 24.8 L 21.8 L (37-47) % MCV 90.2 92.8 (81-99) fL MCH 28.0 27.7 (27.0-32.0) pg MCHC 31.0 L 29.8 L (32-36) g/dL RDW Std Deviation 48.2 H 49.6 H (35.1-43.9) fl RDW Coeff of Carlita 15.1 H 15.1 H (11.6-14.6) % Plt Count 263 238 (150-450) K/mm3 MPV 9.5 10.3 (6.2-12.0) fl Immature Gran % (Auto) 3.200 H (0.0-0.9) % Neut % (Auto) 64.3 (47-70) % Lymph % (Auto) 23.5 (19-41) % [place] % (Auto) 6.4 (0-10) % Eos % (Auto) 2.0 (0-5) % Baso % (Auto) 0.6 (0-1) % Absolute Neuts (auto) 6.2 (2.0-7.7) X10^3/uL Absolute Lymphs (auto) 2.25 (0.83-4.51) X10^3/uL Nucleated RBC % 0.3 (0-5) % Syphilis Total Ab Blood Type O POSITIVE Antibody Screen NEGATIVE Crossmatch See Detail 03/07/23 03/06/23 03/05/23 Range/Units 05:00 01:08 08:40 WBC 10.6 15.2 H (4.4-11.0) K/mm3 RBC 2.41 L 2.54 L (4.2-5.4) M/mm3 Hgb 6.7 L 7.0 L (12.0-15.0) g/dL Hct 21.5 L 22.6 L (37-47) % MCV 89.2 89.0 (81-99) fL MCH 27.8 27.6 (27.0-32.0) pg MCHC 31.2 L 31.0 L (32-36) g/dL RDW Std Deviation 47.1 H 46.5 H (35.1-43.9) fl RDW Coeff of Carlita 14.8 H 14.4 (11.6-14.6) % Plt Count 198 184 (150-450) K/mm3 MPV 9.8 10.3 (6.2-12.0) fl Immature Gran % (Auto) 2.500 H (0.0-0.9) % Neut % (Auto) 68.8 (47-70) % Lymph % (Auto) 20.8 (19-41) % [place] % (Auto) 6.7 (0-10) % Eos % (Auto) 1.0 (0-5) % Baso % (Auto) 0.2 (0-1) % Absolute Neuts (auto) 7.3 (2.0-7.7) X10^3/uL Absolute Lymphs (auto) 2.20 (0.83-4.51) X10^3/uL Nucleated RBC % 0.3 (0-5) % Syphilis Total Ab Non-reactive Blood Type Antibody Screen Crossmatch 03/05/23 03/05/23 Range/Units 08:40 08:40 WBC 8.3 (4.4-11.0) K/mm3 RBC 3.53 L (4.2-5.4) M/mm3 Hgb 9.8 L (12.0-15.0) g/dL Hct 31.5 L (37-47) % MCV 89.2 (81-99) fL MCH 27.8 (27.0-32.0) pg MCHC 31.1 L (32-36) g/dL RDW Std Deviation 45.8 H (35.1-43.9) fl RDW Coeff of Carlita 14.3 (11.6-14.6) % Plt Count 244 (150-450) K/mm3 MPV 10.7 (6.2-12.0) fl Immature Gran % (Auto) 1.600 H (0.0-0.9) % Neut % (Auto) 66.0 (47-70) % Lymph % (Auto) 24.4 (19-41) % [place] % (Auto) 6.4 (0-10) % Eos % (Auto) 1.2 (0-5) % Baso % (Auto) 0.4 (0-1) % Absolute Neuts (auto) 5.5 (2.0-7.7) X10^3/uL Absolute Lymphs (auto) 2.03 (0.83-4.51) X10^3/uL Nucleated RBC % 0 (0-5) % Syphilis Total Ab Blood Type O POSITIVE Antibody Screen NEGATIVE Crossmatch Assessment & Plan (1) Anemia affecting : COMMENT: POD#4 (2) Delivery by section: PLAN: Plan 1) Routine PP care 2) Follow up in 1-2 weeks for incision check and 6 weeks for PP visit 3) Pain management 4) Hgb stable 7.7, continue PO iron, repeat CBC at incision check 5) D/C home
[2023-03-09] MEDS: Enoxaparin 40 MG/0.4 ML Syringe SC (08:59)
[2023-03-09] MEDS: Senna/Docusate Sodium 1 Tablet PO (08:59)
[2023-03-09 11:40] VITALS: BP 130/88; PULSE 96; RESP 16; TEMP 36.7
== END 2023-03-09 12:00 | disposition home or self-care (01) | DRG 785 ==
PROVIDERS: Obstetrics & Gynecology; Admitting Provider Obstetrics & Gynecology; Referring Provider Obstetrics & Gynecology; Visit Provider Obstetrics & Gynecology
PROC: 0UT70ZZ Resection of Bilateral Fallopian Tubes, Open Approach (ICD-10-PCS; CPT 59514; principal; 2023-03-05 11:15)
DX: O30.043 Twin pregnancy, dichorionic/diamniotic, third trimester (principal); Z37.2 Twins, both liveborn; K21.9 Gastro-esophageal reflux disease without esophagitis; O32.2XX1 Maternal care for transverse and oblique lie, fetus 1; O32.1XX1 Maternal care for breech presentation, fetus 1; O32.2XX2 Maternal care for transverse and oblique lie, fetus 2; O36.5931 Maternal care for other known or suspected poor fetal growth, third trimester, fetus 1; O90.81 Anemia of the puerperium; Z30.2 Encounter for sterilization; Z3A.37 37 weeks gestation of pregnancy; O99.62 Diseases of the digestive system complicating childbirth; O36.5932 Maternal care for other known or suspected poor fetal growth, third trimester, fetus 2; Z79.899 Other long term (current) drug therapy
CPT/HCPCS: 59025; 59050; 85025; 85027; 86780; 86850; 86900; 86901; 86920; 86922; 88302; 88307; 94668; 99221; J1756; J7120; P9016; A4216; G0378; J2405